=== PATIENT | female | born 1965 | race Caucasian/White ===

== ENCOUNTER 2018-08-27 13:35 | Emergency (ER) | payer SELFPAY ==
[2018-08-27] MEDS ORDERED: Penicillin V Potassium 500 MG Tab PO ONE (14:13)
--- NOTE | 2018-08-27 14:20 | EDM.PDOC ---
ED HPI GENERAL MEDICAL PROBLEM - General Chief Complaint: General Stated Complaint: TOOTH ACHE Time Seen by Provider: 08/27/18 13:46 Source of Information: Reports: Patient, RN Notes Reviewed History Limitations: Reports: No Limitations - History of Present Illness INITIAL COMMENTS - FREE TEXT/NARRATIVE: The patient states that she developed left lower dental pain about one week ago , after, she believes, she fractured tooth. No recent fever. No recent oral drainage. She states that it feels like her tooth is swollen. She has not made an appointment to see a dentist. The patient does not have a PCP. Tooth/Teeth Pain Score (Numeric/FACES): 8 - Related Data Allergies Allergy/AdvReac Type Severity Reaction Status Date / Time No Known Allergies Allergy Verified 08/27/18 13:40 Home Meds: Home Meds Naproxen 500 mg PO Q12H PRN #20 tablet 08/27/18 [Rx] Penicillin V Potassium 500 mg PO Q6HR #40 tab 08/27/18 [Rx] Past Medical History Cardiovascular History: Reports: CAD, [place] (2008) Musculoskeletal History: Reports: Fracture (right foot) Endocrine/Metabolic History: Reports: Obesity/BMI 30+ - Infectious Disease History Infectious Disease History: Reports: Hepatitis C - Past Surgical History Cardiovascular Surgical History: Reports: Other (See Below) (Coronary angiogram 2008. No stents placed.) Female Surgical History: Reports: Tubal Ligation Musculoskeletal Surgical History: Reports: Other (See Below) (Left leg debridement) Social & Family History - Tobacco Use Smoking Status *Q: Current Every Day Smoker Years of Tobacco use: 43 Packs/Tins Daily: 0.5 Packs/Tins Daily Comment: Down from 3 ppd - Caffeine Use Caffeine Use: Reports: Coffee - Alcohol Use Alcohol Use History: No - Recreational Drug Use Recreational Drug Use: Yes Drug Use in Last 12 Months: No Recreational Drug Type: Reports: Cocaine (last snorted 2011), Marijuana/Hashish (last smoked "years ago") - Living Situation & Occupation Living situation: Reports: , Alone 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 ED EXAM, GENERAL - Physical Exam Exam: See Below Exam Limited By: No Limitations General Appearance: Alert, WD/WN, No Apparent Distress Eye Exam: Bilateral Eye: EOMI, Normal Inspection Ears: Normal External Exam, Normal Canal, Hearing Grossly Normal, Normal TMs Nose: Normal Inspection, Normal Mucosa, No Blood Throat/Mouth: Normal Inspection, Normal Lips, Normal Gums, Normal Oropharynx, Normal Voice, No Airway Compromise, Other (Teeth #1 through 16 absent. Teeth # 17 through 19 absent. Tooth #20 (the tooth of concern) with advanced decay. Tooth #21 with significant caries. Tooth #22 okay. Teeth #23 through 26 absent. Teeth #27, 28 okay. Teeth #29 through 32 absent.) Head: Atraumatic, Normocephalic Neck: Normal Inspection, Supple, Non-Tender, Full Range of Motion. No: Lymphadenopathy (L), Lymphadenopathy (R) Course - Vital Signs Last Recorded V/S: Last Vital Signs Temp 36.0 C 08/27/18 13:40 Pulse 82 08/27/18 13:40 Resp BP 133/85 08/27/18 13:40 Pulse Ox 96 08/27/18 13:40 - Orders/Labs/Meds Orders: Active Orders 24 hr Category Date Time Status Penicillin V Potassium [Veetids] Med 08/27/18 14:13 Once 500 mg PO ONETIME ONE - Re-Assessments/Exams Free Text/Narrative Re-Assessment/Exam: 08/27/18 14:14 The patient appears to have advanced decay of tooth #20, along with some decay of tooth #21. I don't see an obvious infection, but I believe that a prescription for penicillin would be prudent. I will also prescribe naproxen, however, because the patient took 800 mg of ibuprofen just 2 hours ago, it is too early to give her a dose of naproxen here. The patient requested a note to be off work for 2 days. While I don't doubt that her tooth is painful, the degree of decay that I see took quite a while to develop, and I don't see that it constitutes a genuine emergency. I will write the patient a note to be off work today, but I believe it would be appropriate for her to return to work tomorrow. The patient will be given a list of local dentists. Departure - Departure Time of Disposition: 14:16 Disposition: Home, Self-Care 01 Condition: Good Clinical Impression: Dental decay - Discharge Information *PRESCRIPTION DRUG MONITORING PROGRAM REVIEWED*: Not Applicable *COPY OF PRESCRIPTION DRUG MONITORING REPORT IN PATIENT ALVAREZ: Not Applicable Referrals: PCP,None [Primary Care Provider] - Additional Instructions: You were seen in the emergency room for lower left dental pain. On examination, you appear to have significant decay of teeth #20 and 21. No obvious infection was found, but you have been started on the antibiotic penicillin. Prescriptions for penicillin and the pain reliever naproxen have been sent to the [facility], located just south and across the [address] from [facility]. Take one tablet of penicillin every 6 hours, as prescribed. Finish the entire prescription unless told otherwise by a dentist. Take one tablet of naproxen every 12 hours, with food, as prescribed. If you take naproxen, do not also take an [id number] NSAID, such as ibuprofen ( Motrin, Advil), or Naprosyn (Aleve). A list of local dentists has been provided to you. We strongly recommend that you follow-up with a dentist at the next available appointment. If any other problems, please do not hesitate to return to the ER. - My Orders Last 24 Hours: My Active Orders 08/27/18 14:13 Penicillin V Potassium [Veetids] 500 mg PO ONETIME ONE - Assessment/Plan Last 24 Hours: My Active Orders 08/27/18 14:13 Penicillin V Potassium [Veetids] 500 mg PO ONETIME ONE
== END 2018-08-27 14:50 | disposition home or self-care (01) ==
LOC: JD.ED 13:35
DX: K02.9 Dental caries, unspecified (principal); F17.210 Nicotine dependence, cigarettes, uncomplicated
CPT/HCPCS: 99282; A9270; 99283

== ENCOUNTER 2019-05-22 14:05 | Emergency (ER) | payer SELFPAY ==
--- NOTE | 2019-05-22 15:09 | EDM.PDOC ---
<Greta Araujo - Last Filed: 05/22/19 16:15> ED HPI GENERAL MEDICAL PROBLEM - General Chief Complaint: Chest Pain Stated Complaint: LEFT SIDE RIB PAIN Time Seen by Provider: 05/22/19 14:17 Source of Information: Reports: Patient History Limitations: Reports: No Limitations - History of Present Illness INITIAL COMMENTS - FREE TEXT/NARRATIVE: Pt is a 54 year old female who present with left thoracic pain since 05/19/19. Pt states that she was pulling on a wrench and it gave way causing her to fall and hit or left chest on the fender of the truck. Pain is worse with deep breathing, movement and left side lying. She has been having difficulty sleeping due to the pain as she tends to turn onto her left side. She has tried tylenol and ibuprofen without relief. Denies any shortness breath. 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 Left Middle Mid-Anterior Chest Pain Score (Numeric/FACES): 3 - Related Data Allergies Allergy/AdvReac Type Severity Reaction Status Date / Time No Known Allergies Allergy Verified 08/27/18 13:40 Home Meds: Home Meds Acetaminophen/HYDROcodone [[place] 325-5 MG] 1 tab PO Q6H PRN #14 tablet 05/22/19 [Rx] Past Medical History Cardiovascular History: Reports: CAD, [place] Musculoskeletal History: Reports: Fracture Other Musculoskeletal History: wrist Endocrine/Metabolic History: Reports: Obesity/BMI 30+ - Infectious Disease History Infectious Disease History: Reports: Hepatitis C - Past Surgical History HEENT Surgical History: Reports: Other (See Below) Cardiovascular Surgical History: Reports: Other (See Below) Female Surgical History: Reports: Tubal Ligation Social & Family History - Tobacco Use Smoking Status *Q: Current Every Day Smoker Years of Tobacco use: 40 Packs/Tins Daily: 0.5 - Caffeine Use Caffeine Use: Reports: None - Recreational Drug Use Recreational Drug Use: No - Living Situation & Occupation Living situation: Reports: , Alone 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 Denies: Shortness of Breath, Cough Cardiovascular: Reports: No Symptoms Endocrine: Reports: No Symptoms GI/Abdominal: Reports: No Symptoms : Reports: No Symptoms Musculoskeletal: Reports: Other (left sided chest wall pain worse with deep breathing and movement) Skin: Reports: No Symptoms Neurological: Reports: No Symptoms Psychiatric: Reports: No Symptoms Hematologic/Lymphatic: Reports: No Symptoms Immunologic: Reports: No Symptoms ED EXAM, GENERAL - Physical Exam Exam: See Below Exam Limited By: No Limitations General Appearance: Alert, WD/WN, No Apparent Distress Head: Atraumatic, Normocephalic Respiratory/Chest: No Respiratory Distress, Lungs Clear, Normal Breath Sounds, Other (tenderness and slight eccymosis to left chest over ribs 4-6.) Cardiovascular: Normal Peripheral Pulses, Regular Rate, Rhythm, No Edema Neurological: Alert, Oriented, Normal Cognition Psychiatric: Normal Affect, Normal Mood Course - Vital Signs Last Recorded V/S: Last Vital Signs Temp 97.5 F 05/22/19 14:30 Pulse 84 05/22/19 14:30 Resp 16 05/22/19 14:30 BP 109/87 05/22/19 14:30 Pulse Ox 97 05/22/19 14:30 - Re-Assessments/Exams Free Text/Narrative Re-Assessment/Exam: 05/22/19 16:08 xray reveals no obvious rib fractures. Will discharge pt home with orders to alternate APAP and ibuprofen for pain and a few [place] to help with sleeping at night. Departure - Departure Disposition: Home, Self-Care 01 Clinical Impression: Fall, Chest wall contusion - Discharge Information Prescriptions: Acetaminophen/HYDROcodone [[place] 325-5 MG] 1 tab PO Q6H PRN #14 tablet PRN Reason: Pain Instructions: Pulmonary Contusion, [id number] Referrals: PCP,None [Primary Care Provider] - Forms: ED Department Discharge Additional Instructions: You can alternate Tylenol and ibuprofen during the day as needed for discomfort. You can take hydrocodone instead of the Tylenol at bedtime or when not working. Prescription has been sent electronic to [facility]. Do not take Tylenol and hydrocodone at the same time. alternate ice and heat as needed. You can wrap your chest with an Gordon wrap when working to try get some further relief. Follow-up clinic if not much better within 1-2 weeks as expected. Return to ED as needed if symptoms worsening in any way. <Warren Swanson - Last Filed: 05/23/19 07:29> Course - Re-Assessments/Exams Free Text/Narrative Re-Assessment/Exam: 05/23/19 07:27 Initial hx and exam was done by HORTENSIA Hollins. I have also examined and interviewed patient. I agree with her hx and exam as documented. Departure - Departure Time of Disposition: 15:45 Condition: Fair
--- NOTE | 2019-05-22 16:14 | CR ---
Chest and left ribs: Frontal view of the chest was obtained as well as 2 views of the left ribs. Comparison: No previous chest exam. Heart size is normal. Tortuous thoracic aorta is seen. Lungs are clear with no acute parenchymal change. No discrete rib fracture or other rib abnormality is appreciated. Scoliosis is present within the spine. Impression: 1. Scoliosis. 2. Nothing acute is appreciated. 3. No definite left-sided rib abnormality is seen. Nondisplaced fracture could be missed. Diagnostic code #2
== END 2019-05-22 16:15 | disposition home or self-care (01) ==
LOC: JD.ED 14:05
DX: S20.212A Contusion of left front wall of thorax, initial encounter (principal); I25.10 Atherosclerotic heart disease of native coronary artery without angina pectoris; I25.2 Old myocardial infarction; F17.210 Nicotine dependence, cigarettes, uncomplicated; E66.9 Obesity, unspecified; Z68.32 Body mass index [BMI] 32.0-32.9, adult; W01.198A Fall on same level from slipping, tripping and stumbling with subsequent striking against other object, initial encounter; Y93.89 Activity, other specified
CPT/HCPCS: 71101-26-LT; 71101-LT; 99283; 99284-25

== ENCOUNTER 2019-07-21 19:41 | Emergency (ER) | payer OTHER ==
--- NOTE | 2019-07-21 19:59 | EDM.PDOC ---
ED HPI GENERAL MEDICAL PROBLEM - General Chief Complaint: Abdominal Pain Stated Complaint: abdominal pain Time Seen by Provider: 07/21/19 19:59 - History of Present Illness INITIAL COMMENTS - FREE TEXT/NARRATIVE: 54-year-old female presents the emergency room with abdominal pain. This pain started this morning seems to be worsening with eating pain seems to be in the midepigastric and right upper quadrant area. The patient gets pain with this she does not have associated vomiting she is been a little nauseated. No change in bowel habits. She has not had any fevers or chills. The only abdominal surgery the patient has had a tubal ligation. Epigastric Pain Score (Numeric/FACES): 5 - Related Data Allergies Allergy/AdvReac Type Severity Reaction Status Date / Time No Known Allergies Allergy Verified 07/21/19 19:49 Home Meds: Home Meds Pantoprazole Sodium [Protonix] 40 mg PO ASDIRECTED #30 tablet. 07/21/19 [Rx] Sucralfate [Carafate] 1 gm PO ASDIRECTED #24 tablet 07/21/19 [Rx] Past Medical History Cardiovascular History: Reports: CAD, [place] Gastrointestinal History: Reports: Fatty Liver, Other (See Below) Other Gastrointestinal History: hepatitis C Genitourinary History: Reports: Other (See Below) Other Genitourinary History: herpes Musculoskeletal History: Reports: Fracture Other Musculoskeletal History: wrist Endocrine/Metabolic History: Reports: Obesity/BMI 30+ - Infectious Disease History Infectious Disease History: Reports: Hepatitis C - Past Surgical History HEENT Surgical History: Reports: Other (See Below) Cardiovascular Surgical History: Reports: Other (See Below) Female Surgical History: Reports: Tubal Ligation Social & Family History - Tobacco Use Smoking Status *Q: Current Every Day Smoker Years of Tobacco use: 45 Packs/Tins Daily: 0.5 - Caffeine Use Caffeine Use: Reports: None - Recreational Drug Use Recreational Drug Use: Yes Drug Use in Last 12 Months: No - Living Situation & Occupation Living situation: Reports: , Alone 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 Denies: Constipation, Diarrhea , Nausea, Vomiting Musculoskeletal: Reports: No Symptoms, Muscle Pain Neurological: Reports: No Symptoms ED EXAM, GI/ABD - Physical Exam Exam: See Below General Appearance: Alert, No Apparent Distress Head: Atraumatic, Normocephalic Neck: Normal Inspection, Supple, Non-Tender, Full Range of Motion Respiratory/Chest: No Respiratory Distress, Lungs Clear, Normal Breath Sounds Cardiovascular: Regular Rate, Rhythm, No Edema, No Murmur GI/Abdominal Exam: Normal Bowel Sounds, Soft, Other (Capital tenderness in the epigastric area and to a lesser degree right upper quadrant. She also has some nonspecific left upper quadrant discomfort. She has no rigidity rebound or guarding noted no other palpable tenderness noted.) Back Exam: Normal Inspection. No: CVA Tenderness (L), CVA Tenderness (R) Extremities: Normal Inspection Course - Vital Signs Last Recorded V/S: Last Vital Signs Temp 36.1 C 07/21/19 19:47 Pulse 82 07/21/19 19:47 Resp 18 07/21/19 19:47 BP 138/94 H 07/21/19 19:47 Pulse Ox 97 07/21/19 19:47 - Orders/Labs/Meds Orders: Active Orders 24 hr Category Date Time Status Pantoprazole [ProTONIX] Med 07/22/19 21:33 Once 40 mg PO ONETIME ONE Medication Orders Pantoprazole Sodium (Protonix) 40 mg PO ONETIME ONE Stop: 07/22/19 21:34 Labs: Laboratory Tests 07/21/19 07/21/19 Range/Units 20:25 20:25 WBC 7.57 (3.98-10.04) K/mm3 RBC 4.14 (3.98-5.22) M/mm3 Hgb 13.3 (11.2-15.7) gm/dl Hct 38.8 (34.1-44.9) % MCV 93.7 (79.4-94.8) fl MCH 32.1 (25.6-32.2) pg MCHC 34.3 (32.2-35.5) g/dl RDW Std Deviation 41.0 (36.4-46.3) fL Plt Count 220 (182-369) K/mm3 MPV 8.7 L (9.4-12.3) fl Neutrophils % (Manual) 50 (40-60) % Band Neutrophils % 0 (0-10) % Lymphocytes % (Manual) 41 H (20-40) % Atypical Lymphs % 0 % Monocytes % (Manual) 6 (2-10) % Eosinophils % (Manual) 3 (0.7-5.8) % Basophils % (Manual) 0 L (0.1-1.2) Platelet Estimate Adequate RBC Morph Comment Normal Sodium 139 (136-145) mEq/L Potassium 3.7 (3.5-5.1) mEq/L Chloride 104 (98-107) mEq/L Carbon Dioxide 27 (21-32) mEq/L Anion Gap 11.7 (5-15) BUN 18 (7-18) mg/dL Creatinine 0.5 L (0.55-1.02) mg/dL Est Cr Clr Drug Dosing 107.64 mL/min Estimated GFR (MDRD) > 60 (>60) mL/min BUN/Creatinine Ratio 36.0 H (14-18) Glucose 87 (74-106) mg/dL Calcium 8.6 (8.5-10.1) mg/dL Total Bilirubin 0.2 (0.2-1.0) mg/dL Direct Bilirubin 0.10 (0.0-0.2) mg/dl AST 22 (15-37) U/L ALT 40 (14-59) U/L Alkaline Phosphatase 49 (46-116) U/L Total Protein 6.9 (6.4-8.2) g/dl Albumin 3.6 (3.4-5.0) g/dl Globulin 3.3 gm/dL Albumin/Globulin Ratio 1.1 (1-2) Lipase 133 (73-393) U/L Meds: Medications Generic Name Dose Route Start Last Admin Trade Name Freq PRN Reason Stop Dose Admin Pantoprazole Sodium 40 mg 07/22/19 21:33 Protonix PO 07/22/19 21:34 ONETIME ONE Discontinued Medications Generic Name Dose Route Start Last Admin Trade Name Freq PRN Reason Stop Dose Admin Al Hydroxide/Mg Hydroxide 30 0 ml 07/21/19 20:05 07/21/19 20:19 ml/ Lidocaine HCl 15 ml PO 07/21/19 20:06 45 ml ONETIME ONE Administration Sucralfate 1 gm 07/21/19 21:33 Carafate PO 07/21/19 21:34 ONETIME ONE - Re-Assessments/Exams Free Text/Narrative Re-Assessment/Exam: 07/21/19 21:29 Patient had some improvement with a GI cocktail but not complete patient was pretty insistent on going home at this time we will start her on Carafate and Protonix have her follow-up in the clinic obtain a gallbladder ultrasound at that time if indicated Departure - Departure Time of Disposition: 21:30 Disposition: Home, Self-Care 01 Clinical Impression: Upper abdominal pain - Discharge Information Prescriptions: Pantoprazole Sodium [Protonix] 40 mg PO ASDIRECTED #30 tablet. Sucralfate [Carafate] 1 gm PO ASDIRECTED #24 tablet Referrals: PCP,None [Primary Care Provider] - Forms: ED Department Discharge Additional Instructions: Return to the emergency room with any questions problems or worsening symptoms. Take the medications as directed. Follow-up in the hospital clinic early next week for recheck pursue gallbladder ultrasound at that time if indicated. The phone number to the clinic is [phone] Sepsis Event Note - Evaluation Sepsis Screening Result: No Definite Risk - Focused Exam Vital Signs: Vital Signs Temp Pulse Resp BP Pulse Ox 07/21/19 19:47 36.1 C 82 18 138/94 H 97 Date Exam was Performed: 07/21/19 Time Exam was Performed: 21:35 - My Orders Last 24 Hours: My Active Orders 07/22/19 21:33 Pantoprazole [ProTONIX] 40 mg PO ONETIME ONE - Assessment/Plan Last 24 Hours: My Active Orders 07/22/19 21:33 Pantoprazole [ProTONIX] 40 mg PO ONETIME ONE
[2019-07-21] MEDS ORDERED: Alum Hydrox/Mag Hydrox/Simeth 30 ML, Lidocaine 2% 15 ML PO ONE ×2 (20:05)
[2019-07-21] MEDS ORDERED: Sucralfate Suspension 1 GM/10 ML Cup PO ONE (21:33)
[2019-07-21] MEDS ORDERED: Pantoprazole 40 MG Tab.CR PO ONE (21:43)
[2019-07-22] MEDS ORDERED: Pantoprazole 40 MG Tab.CR PO ONE (21:33)
== END 2019-07-21 21:51 | disposition home or self-care (01) ==
LOC: JD.ED 19:41
DX: R10.13 Epigastric pain (principal); F17.210 Nicotine dependence, cigarettes, uncomplicated; Z98.51 Tubal ligation status
CPT/HCPCS: 36415; 80053; 82248; 83690; 85007; 85027; 99284; A9270; 99283

== ENCOUNTER 2019-08-23 10:19 | Day surgery (SDC) | payer OTHER, SELFPAY ==
[~2019-08-23 10:19] MED LIST: Lactated Ringers 1,000 ML IV SCH; Lidocaine 1%/Sod Bicarbonate in NS 8.4% 1 ML Syringe IDERM PRN; Sodium Chloride 0.9% 10 ML Syringe FLUSH PRN
--- NOTE | 2019-08-23 10:44 | PCM.PREANE ---
Preanesthetic Assessment - Anesthesia/Transfusion/Family Hx Anesthesia History: Prior Anesthesia Without Reaction - Review of Systems General: No Symptoms Pulmonary: No Symptoms Cardiovascular: No Symptoms Gastrointestinal: No Symptoms Neurological: No Symptoms Other: Reports: None - Physical Assessment NPO Status Date: 08/22/19 NPO Status Time: 21:00 ASA Class: 3 Mental Status: Alert & Oriented x3 Airway Class: Mallampati = 1 Dentition: Reports: Edentulous (4 lower premolars left severely decayed) Thyro-Mental Finger Breadths: 3 Mouth Opening Finger Breadths: 3 ROM/Head Extension: Full Lungs: Clear to Auscultation Cardiovascular: Regular Rate, Regular Rhythm - Imaging/EKG Impressions: EKG and stress test reviewed, copies on the chart. EF=55 to 60% - Allergies Allergies/Adverse Reactions: Allergies Allergy/AdvReac Type Severity Reaction Status Date / Time No Known Allergies Allergy Verified 08/22/19 12:33 - Acknowledgements Anesthesia Type Planned: General Anesthesia Pt an Appropriate Candidate for the Planned Anesthesia: Yes Alternatives and Risks of Anesthesia Discussed w Pt/Guardian: Yes Pt/Guardian Understands and Agrees with Anesthesia Plan: Yes PreAnesthesia Questionnaire Cardiovascular History: Reports: CAD, [place] Gastrointestinal History: Reports: Fatty Liver, Hepatitis, Other (See Below) Other Gastrointestinal History: hepatitis C Genitourinary History: Reports: Other (See Below) Other Genitourinary History: herpes, cone biopsy 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 Musculoskeletal History: Reports: None, Fracture Other Musculoskeletal History: wrist Psychiatric History: Reports: Other (See Below) Other Psychiatric History: insomnia Endocrine/Metabolic History: Reports: Obesity/BMI 30+ Immunologic History: Reports: None Dermatologic History: Reports: Cellulitis Other Dermatologic History: 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 - Infectious Disease History Infectious Disease History: Reports: Hepatitis C - Past Surgical History Head Surgeries/Procedures: Reports: None HEENT Surgical History: Reports: Other (See Below) Cardiovascular Surgical History: Reports: Other (See Below) Respiratory Surgical History: Reports: None Female Surgical History: Reports: Tubal Ligation Male Surgical History: Reports: None Endocrine Surgical History: Reports: None Neurological Surgical History: Reports: None Musculoskeletal Surgical History: Reports: Other (See Below) Other Musculoskeletal Surgeries/Procedures:: vascularlitis left leg Dermatological Surgical History: Reports: Skin Biopsy, Skin Graft - SUBSTANCE USE Smoking Status *Q: Current Every Day Smoker Recreational Drug Use History: No - HOME MEDS Home Medications: Home Meds Aspirin 81 mg PO DAILY 08/22/19 [History] - CURRENT (IN HOUSE) MEDS Current Meds: Current Medications Lactated Ringer's (Ringers, Lactated) 1,000 mls @ 125 mls/hr IV ASDIRECTED ILENE Stop: 08/23/19 23:00 Lidocaine/Sodium Bicarbonate (Buffered Lidocaine 1% In Ns 8.4%) 0.25 ml IDERM ONETIME PRN PRN Reason: Prior to IV Start Stop: 08/23/19 18:00 Sodium Chloride (Saline Flush) 10 ml FLUSH ASDIRECTED PRN PRN Reason: Keep Vein Open Stop: 08/23/19 18:00
[2019-08-23] MEDS ORDERED: Rocuronium 50 MG/5 ML Vial ONE (11:41)
[2019-08-23] MEDS ORDERED: Midazolam 1 MG/ML 2 ML SDV ONE ×2 (11:42→12:04)
[2019-08-23] MEDS ORDERED: fentaNYL 250 MCG/5 ML SDV ONE (11:42)
[2019-08-23] MEDS ORDERED: Propofol 200 MG/20 ML SDV ONE (11:42)
[2019-08-23] MEDS ORDERED: Lidocaine 1% 6 ML ONE (11:45)
[2019-08-23] MEDS ORDERED: ceFAZolin 1 GM Vial ONE (11:53)
[2019-08-23] MEDS: Bupivacaine 0.5%/EPINEPHrine 1:200,000 50 ML MDV ONE ×2 (12:18→12:29)
[2019-08-23] MEDS ORDERED: HYDROmorphone 0.5 MG/0.5 ML Syringe ONE ×2 (12:23→12:32)
[2019-08-23] MEDS ORDERED: Lactated Ringers 1,000 ML ONE (12:31)
[2019-08-23] MEDS ORDERED: Neostigmine Methylsulfate 1 MG/ML 5 ML Syringe ONE (12:42)
[2019-08-23] MEDS ORDERED: HYDROmorphone 0.5 MG/0.5 ML Syringe IVPUSH PRN (12:47)
[2019-08-23] MEDS ORDERED: fentaNYL 100 MCG/2 ML SDV IVPUSH PRN (12:47)
[2019-08-23] MEDS ORDERED: Ondansetron 4 MG/2 ML SDV ONE (12:48)
--- NOTE | 2019-08-23 12:59 | PCM.PRNOTE ---
- Free Text/Narrative Note: Operative Report Operation: laparoscopic cholecystectomy Date: 08/23/2019 Attending Surgeon: Jeremías Garcia MD Assisting: SHERICE Hutchinson Indication for Surgery: symptomatic cholelithiasis Preoperative antibiotics: 2 g Ancef IV VTE prophylaxis: SCDs Estimated Blood Loss: 10 cc Findings: perihepatic adhesions and omental adhesions to gallbladder. Straightforward dissection. The cystic artery coursed directly adjacent to the cystic duct and both structures were clamped and cut together after otherwise obtaining a critical view of safety. Detailed Report: The patient underwent general endotracheal anesthesia after being placed supine on the operating table and initial timeout. The abdomen was prepped and draped in sterile fashion. A pre-incision timeout was performed confirming the patient s identity and the operation to be performed. A Veress needle was inserted into the abdominal cavity below the left costal margin along the mid-clavicular line. The abdomen was insufflated with CO2 to 15 mm Hg. Gas was aspirated above the umbilicus with a syringe in order to ensure safe placement of a 5 mm bladed laparoscopic port. The 5mm 30 degree laparoscope was then inserted and viscera inspected. The gallbladder showed evidence of mild chronic inflammation. Two additional 5 mm ports were placed along the right subcostal region under direct vision with the laparoscope, and a 12 mm port was placed at the subxiphoid region. The gallbladder was grasped at the fundus with a locking grasper and retracted anteriorly and superiorly, exposing the infundibulum. This was grasped with the surgeons left hand grasper and retracted laterally. Adhesions to the gallbladder were dissected with the laparoscopic monopolar hook. The hook electrode was used to open the overlying peritoneum, and this plane of dissection was developed along the edges of the gallbladder at its interface with the liver bed. A combination of hook electrode, blunt dissection with the suction defensive fire control systems operator and the [place] grasper were used to carefully expose and skeletonize the cystic duct and artery. A critical view of safety was obtained- the duct and artery were apposed and attempts at dissection between the two resulted in some hemorrhage. The structures were otherwise skeletonized and a 5 mm clip easily fit across both structures. Hemolock clips were then placed. The duct and artery were transected with laparoscopic scissors between the hemolock clips. The hook was then used to dissect the gallbladder free from its attachment to the liver. The specimen was then placed in an Endocatch bag and removed through the subxiphoid port. The liver bed was inspected and appeared hemostatic, some irrigation was used to clear a small hematoma. The larger subxiphoid port was closed at the level of the fascia with vicryl suture using the PMI laparoscopic suture passer. Pneumoperitoneum was then released. All skin incisions were then closed with placement of subcuticular vicryl suture and dressed with dermabond. A total of 20 cc 0.5% marcaine with epinephrine was used for local anesthesia at the incision sites. The patient tolerated the operation well, was extubated in the operating room and transferred to the PACU for routine post-anesthesia care. Jeremías Garcia MD General Surgery
--- NOTE | 2019-08-23 13:23 | PCM.POSTAN ---
POST ANESTHESIA ASSESSMENT - MENTAL STATUS Mental Status: Alert, Confused - VITAL SIGNS Vital Signs: Last Vital Signs Temp 98.5 F 08/23/19 13:02 Pulse 74 08/23/19 13:02 Resp 15 08/23/19 13:02 BP 154/101 H 08/23/19 13:02 Pulse Ox 96 08/23/19 13:02 - RESPIRATORY Respiratory Status: Respiratory Rate WNL, Airway Patent, O2 Saturation Stable, Supplemental Oxygen - CARDIOVASCULAR CV Status: Pulse Rate WNL, Elevated Blood Pressure - GASTROINTESTINAL GI Status: Nauseau (tolerable) - PAIN Pain Score: 7 (is being treated) - POST OP HYDRATION Hydration Status: Adequate & Stable
[2019-08-23] MEDS ORDERED: Ketorolac 30 MG/ML SDV IVPUSH SCH (13:30)
[2019-08-23] MEDS ORDERED: diphenhydrAMINE 50 MG/ML SDV IVPUSH PRN (13:35)
[2019-08-23] MEDS ORDERED: oxyCODONE 5 MG Tab PO PRN (14:22)
--- NOTE | 2019-08-23 14:31 | PCM48HPAN ---
Post Anesthesia Note - EVALUATION WITHIN 48HRS OF ANESTHETIC Vital Signs in Normal Range: Yes Patient Participated in Evaluation: Yes Respiratory Function Stable: Yes Airway Patent: Yes Cardiovascular Function Stable: Yes Hydration Status Stable: Yes Pain Control Satisfactory: Yes (treating) Nausea and Vomiting Control Satisfactory: Yes Mental Status Recovered: Yes Vital Signs: Last Vital Signs Temp 36.9 C 08/23/19 13:30 Pulse 76 08/23/19 13:30 Resp 16 08/23/19 13:30 BP 142/85 H 08/23/19 13:30 Pulse Ox 96 08/23/19 13:30 - COMMENTS/OBSERVATIONS Free Text/Narrative:: no anesthesia complications noted
== END 2019-08-23 16:40 | disposition home or self-care (01) ==
LOC: JD.SDS 10:19 → JD.MS 15:00 → JD.SDS 16:40
PROVIDERS: ATTEND Surgery
DX: K82.8 Other specified diseases of gallbladder (principal); I25.10 Atherosclerotic heart disease of native coronary artery without angina pectoris; I25.2 Old myocardial infarction; F17.200 Nicotine dependence, unspecified, uncomplicated; E66.9 Obesity, unspecified; Z68.33 Body mass index [BMI] 33.0-33.9, adult; Z79.82 Long term (current) use of aspirin; Z79.899 Other long term (current) drug therapy
CPT/HCPCS: 47562; A9270; J0690; J1170; J1885; J2001; J2250; J2405; J2704; J3010; J3490; J7120; 00790; J2710

== ENCOUNTER 2019-08-26 12:56 | Emergency (ER) | payer OTHER, SELFPAY ==
[2019-08-26] MEDS ORDERED: Ondansetron 4 MG Tab.DIS PO ONE (13:34)
--- NOTE | 2019-08-26 14:03 | EDM.PDOC ---
ED HPI GENERAL MEDICAL PROBLEM - General Chief Complaint: Abdominal Pain Stated Complaint: PAIN POST GALLBLADDER SURGERY Time Seen by Provider: 08/26/19 13:34 Source of Information: Reports: Patient, RN Notes Reviewed History Limitations: Reports: No Limitations - History of Present Illness INITIAL COMMENTS - FREE TEXT/NARRATIVE: Patient is a 54-year-old female who presents to the ED for the evaluation of ongoing pain status post gallbladder surgery. This was done laparoscopically, the patient does have 5 abdominal surgical wounds that appear to be well- healing. One is in the epigastric area, one is just superior to the bellybutton , and there were 2 on the right lateral abdomen. The 2 on the right lateral abdomen had to have some bruising present, the wound on the epigastrium, appears to be well-healing with no surrounding erythema or obvious infection. The wound above the bellybutton also appears to have no erythema or obvious infection. Patient states she is still having quite a bit of pain to the epigastric laceration. Patient states that the pain medication she was provided , she has run out of due to needing to take it more frequent than every 4 hours. She states she was having to take it about every 3 hours for pain relief. She states that she is trying to stretch it to every 4. She has been trying to use 800 mg ibuprofen as well for further pain management but states she does not get a lot of relief from this. Patient did call her surgeon and was told that if she is still having that much pain that she is to come to the ER for evaluation. Patient states that she did have one episode of nausea 1 day after the surgery, but has not had nausea since. She has been having bowel movements, and states that she is belching as well. She states she is eating and drinking okay. She has not had any fevers or chills, or any other sick- like symptoms. Upper Abdomen Pain Score (Numeric/FACES): 10 - Related Data Allergies Allergy/AdvReac Type Severity Reaction Status Date / Time No Known Allergies Allergy Verified 08/22/19 12:33 Home Meds: Home Meds Aspirin 81 mg PO DAILY 08/22/19 [History] oxyCODONE 5 mg PO Q4H #15 tab 08/23/19 [Rx] Acetaminophen/oxyCODONE [Percocet 325-5 MG] 1 each PO Q4H PRN #20 tab 08/26/19 [ Rx] Docusate Sodium [Colace] 100 mg PO DAILY 08/26/19 [History] Past Medical History Cardiovascular History: Reports: CAD, [place] Gastrointestinal History: Reports: Fatty Liver, Hepatitis, Other (See Below) Other Gastrointestinal History: hepatitis C Genitourinary History: Reports: Other (See Below) Other Genitourinary History: herpes, cone biopsy Musculoskeletal History: Reports: Fracture Other Musculoskeletal History: wrist Psychiatric History: Reports: Other (See Below) Other Psychiatric History: insomnia Endocrine/Metabolic History: Reports: Obesity/BMI 30+ Dermatologic History: Reports: Cellulitis Other Dermatologic History: 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 - Infectious Disease History Infectious Disease History: Reports: Hepatitis C - Past Surgical History HEENT Surgical History: Reports: Other (See Below) Cardiovascular Surgical History: Reports: Other (See Below) GI Surgical History: Reports: Appendectomy, Cholecystectomy Female Surgical History: Reports: Tubal Ligation Musculoskeletal Surgical History: Reports: Other (See Below) Other Musculoskeletal Surgeries/Procedures:: vasculitis left leg Dermatological Surgical History: Reports: Skin Biopsy, Skin Graft Social & Family History - Tobacco Use Smoking Status *Q: Current Every Day Smoker Years of Tobacco use: 40 Packs/Tins Daily: 0.5 - Caffeine Use Caffeine Use: Reports: Coffee, Soda - Recreational Drug Use Recreational Drug Use: No - Living Situation & Occupation Living situation: Reports: , Alone 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 Denies: Constipation, Diarrhea, Decreased Appetite, Nausea, Vomiting : Denies: Dysuria, Frequency, Urgency Musculoskeletal: Denies: Back Pain Skin: Reports: Other (See HPI) ED EXAM, GI/ABD - Physical Exam Exam: See Below Exam Limited By: No Limitations General Appearance: Alert, WD/WN, No Apparent Distress Eyes: Bilateral: Normal Appearance Respiratory/Chest: No Respiratory Distress, Lungs Clear, Normal Breath Sounds, No Accessory Muscle Use, Chest Non-Tender Cardiovascular: Normal Peripheral Pulses, Regular Rate, Rhythm, No Murmur GI/Abdominal Exam: Normal Bowel Sounds, Soft, No Distention, No Mass, Tender ( around epigastric incision and umbilical incision, no erythema noted, no obvious infection present. The incisions on lateral abdomen have surrounding ecchymosis, but no erythema or obvious signs of infection.) Neurological: Alert, Oriented, Normal Cognition, No Motor/Sensory Deficits Psychiatric: Normal Affect, Normal Mood Skin Exam: Warm, Dry, No Rash, Ecchymosis (Around the 2 lateral laparoscopic wounds), Wound/Incision (See abdomen assessment). No: Erythema, Increased Warmth Course - Vital Signs Last Recorded V/S: Last Vital Signs Temp 98.0 F 08/26/19 13:25 Pulse 71 08/26/19 13:25 Resp 20 08/26/19 13:25 BP 128/87 08/26/19 13:25 Pulse Ox 98 08/26/19 13:25 - Orders/Labs/Meds Meds: Medications Discontinued Medications Generic Name Dose Route Start Last Admin Trade Name Freq PRN Reason Stop Dose Admin Ondansetron HCl 4 mg 08/26/19 13:34 08/26/19 13:54 Zofran Odt PO 08/26/19 13:35 Not Given ONETIME ONE - Re-Assessments/Exams Free Text/Narrative Re-Assessment/Exam: 08/26/19 14:11 Patient presents to the ED for the evaluation of increased pain around her laparoscopic incision sites. Patient is still semi-tender to her epigastric incision and umbilical incision. There is no obvious signs of any sort of infection, erythema, or any other worrisome signs or symptoms. These do appear to be healing well. Patient has come because she is basically run out of her pain medications. I will provide her with a few more tablets and gave her the strict recommendation that she does need to follow-up with Dr. Garcia tomorrow , she states that she will do as such. Departure - Departure Time of Disposition: 13:57 Disposition: Home, Self-Care 01 Condition: Fair Clinical Impression: Abdominal pain Qualifiers: Abdominal location: right upper quadrant Qualified Code(s): R10.11 - Right upper quadrant pain - Discharge Information *PRESCRIPTION DRUG MONITORING PROGRAM REVIEWED*: Yes *COPY OF PRESCRIPTION DRUG MONITORING REPORT IN PATIENT ALVAREZ: No Prescriptions: Acetaminophen/oxyCODONE [Percocet 325-5 MG] 1 each PO Q4H PRN #20 tab PRN Reason: Pain Instructions: Managing Pain Without Opioids, Opioid Pain Medicine Information, [id number] Referrals: Jeremías Garcia MD [Primary Care Provider] - Forms: ED Department Discharge Additional Instructions: You were evaluated in the ER today regarding your abdominal pain around your incision sites. These were evaluated and they do not appear to have any sort of infection present at each site. It is very likely that you will have some pain around these areas for quite some time after your surgery. As this is only 3 days post her surgery. You were given a few more tablets of some pain medication for further pain relief however you will need to follow-up with the surgeon early Tuesday morning so that he may lay eyes on you and reevaluate you as well. You were given a prescription for a strong pain medication, oxycodone/ acetaminophen 5/325, please take 1 tab every 4-6 hours as needed for pain not relieved by Tylenol or ibuprofen alone. Please note this medication does contain Tylenol in it, so do not take more than 4000 mg in a 24-hour time span. These medications can be addictive, so please take as few as possible to achieve adequate pain control. These meds can also be quite constipating, recommend that you increase your oral fluid intake and take a stool softener like MiraLAX while taking these medications. Do not drive while taking this medication. Please return to the ER at any time however if your symptoms change or worsen. Sepsis Event Note - Evaluation Sepsis Screening Result: No Definite Risk - Focused Exam Vital Signs: Vital Signs Temp Pulse Resp BP Pulse Ox 08/26/19 13:25 98.0 F 71 20 128/87 98 Date Exam was Performed: 08/26/19 Time Exam was Performed: 14:04
== END 2019-08-26 14:15 | disposition home or self-care (01) ==
LOC: JD.ED 12:56
DX: R10.11 Right upper quadrant pain (principal); F17.210 Nicotine dependence, cigarettes, uncomplicated; Z79.82 Long term (current) use of aspirin; Z79.899 Other long term (current) drug therapy
CPT/HCPCS: 99283

== ENCOUNTER 2019-10-06 10:45 | Emergency (ER) | payer MEDICAID, OTHER, SELFPAY ==
--- NOTE | 2019-10-06 11:32 | EDM.PDOC ---
ED HPI GENERAL MEDICAL PROBLEM - General Chief Complaint: ENT Problem Stated Complaint: RUNNY NOSE AND SORE THROAT Time Seen by Provider: 10/06/19 11:06 Source of Information: Reports: Patient, RN Notes Reviewed History Limitations: Reports: No Limitations - History of Present Illness INITIAL COMMENTS - FREE TEXT/NARRATIVE: Patient is a 54-year-old female who presents to the ED for evaluation of a runny nose and sore throat. The patient notes that the symptoms started Tuesday. She noted the runny nose started first, that she developed a mild cough and a sore throat. She states that she has felt chilled at home but has not had an actual fever. She has not taken any medications for the symptoms. 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 The patient notes that her boss sent her here to be checked for COVID-19 today. Patient denies any travel outside the state or country, and states that she has not had exposure to anyone that has been known to be positive for coronavirus. Patient states that she has had exposure however to 2 persons with the flu, and states that she does get strep throat pretty often in the winter. She notes that her sore throat does feel like it does before she gets diagnosed with strep throat normally. - Related Data Allergies Allergy/AdvReac Type Severity Reaction Status Date / Time No Known Allergies Allergy Verified 10/06/19 11:03 Home Meds: Home Meds Omeprazole Magnesium [Prilosec Otc] 20 mg PO DAILY 10/06/19 [History] Past Medical History Cardiovascular History: Reports: CAD, [place] Gastrointestinal History: Reports: Fatty Liver, Hepatitis, Other (See Below) Other Gastrointestinal History: hepatitis C Genitourinary History: Reports: Other (See Below) Other Genitourinary History: herpes, cone biopsy Musculoskeletal History: Reports: Fracture Other Musculoskeletal History: wrist Psychiatric History: Reports: Other (See Below) Other Psychiatric History: insomnia Endocrine/Metabolic History: Reports: Obesity/BMI 30+ Dermatologic History: Reports: Cellulitis Other Dermatologic History: 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 - Infectious Disease History Infectious Disease History: Reports: Hepatitis C - Past Surgical History HEENT Surgical History: Reports: Other (See Below) Cardiovascular Surgical History: Reports: Other (See Below) GI Surgical History: Reports: Cholecystectomy (aug 2019) Female Surgical History: Reports: Tubal Ligation Musculoskeletal Surgical History: Reports: Other (See Below) Other Musculoskeletal Surgeries/Procedures:: vasculitis left leg Dermatological Surgical History: Reports: Skin Biopsy, Skin Graft Social & Family History - Family History Family Medical History: Noncontributory - Tobacco Use Smoking Status *Q: Current Every Day Smoker Years of Tobacco use: 43 Packs/Tins Daily: 0.5 - Caffeine Use Caffeine Use: Reports: Coffee, Soda, Tea - Recreational Drug Use Recreational Drug Use: Yes Drug Use in Last 12 Months: Yes Recreational Drug Type: Reports: Marijuana/Hashish Recreational Drug Use Frequency: Daily - Living Situation & Occupation Living situation: Reports: , Alone Occupation: Employed (Works at [employer] ED ROS ENT - Review of Systems Review Of Systems: See Below Constitutional: Reports: Chills. Denies: Fever HEENT: Reports: Rhinitis, Throat Pain Respiratory: Reports: Cough. Denies: Shortness of Breath Cardiovascular: Denies: Chest Pain GI/Abdominal: Denies: Abdominal Pain, Constipation, Diarrhea, Nausea, Vomiting Neurological: Denies: Headache ED EXAM, ENT - Physical Exam Exam: See Below Exam Limited By: No Limitations General Appearance: Alert, WD/WN, No Apparent Distress Eye Exam: Bilateral Eye: EOMI, Normal Inspection, PERRL Ears: Normal External Exam Nose: Normal Inspection Mouth/Throat: Normal Inspection, Normal Gums, Normal Lips, Normal Teeth, Pharyngeal Erythema (mild). No: Tonsillar Exudates, Tonsillar Swelling Head: Atraumatic, Normocephalic Neck: Normal Inspection Respiratory/Chest: No Respiratory Distress, Lungs Clear, Normal Breath Sounds, No Accessory Muscle Use, Chest Non-Tender Cardiovascular: Normal Peripheral Pulses, Regular Rate, Rhythm, No Murmur GI/Abdominal: Normal Bowel Sounds, Soft, Non-Tender, No Distention, No Mass Extremities: Normal Inspection, Normal Capillary Refill Neurological: Alert, Oriented, Normal Cognition, No Motor/Sensory Deficits Psychiatric: Normal Affect, Normal Mood Skin: Warm, Dry, Intact, Normal Color, No Rash Course - Vital Signs Last Recorded V/S: Last Vital Signs Temp 97.9 F 10/06/19 11:00 Pulse 84 10/06/19 11:00 Resp 15 10/06/19 11:00 BP 122/78 10/06/19 11:00 Pulse Ox 96 10/06/19 11:00 - Orders/Labs/Meds Orders: Active Orders 24 hr Category Date Time Status CULTURE STREP A CONFIRMATION [RM] Stat Lab 10/06/19 11:20 Results STREP SCRN A RAPID W CULT CONF [RM] Stat Lab 10/06/19 11:17 Ordered Isolation [COMM] Routine Oth 10/06/19 11:17 Ordered - Re-Assessments/Exams Free Text/Narrative Re-Assessment/Exam: 10/06/19 11:35 Patient presents to the ED for the evaluation of her cold-like symptoms. 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 10/06/19 12:12 All tests are negative at this time. Strep will be sent for culture for confirmation. Patient will be given a handout on COVID-19 testing. Departure - Departure Time of Disposition: 12:13 Disposition: Home, Self-Care 01 Condition: Fair Clinical Impression: Acute sore throat, Viral URI with cough - Discharge Information *PRESCRIPTION DRUG MONITORING PROGRAM REVIEWED*: No *COPY OF PRESCRIPTION DRUG MONITORING REPORT IN PATIENT ALVAREZ: No Instructions: Viral Respiratory Infection, [id number] Referrals: Shannon Gutierrez PA-C [Primary Care Provider] - Forms: ED Department Discharge, ED Return to Work/School Form Additional Instructions: You have been evaluated in the ED today for your cold like symptoms. You had an influenza screen, RSV screen, and strep screen done at today's visit. All of these were negative, however the strep screen will be sent for culture for confirmation as this is not a perfect test. You will be made notified in 24 to 48 hours if you should need antibiotics for a positive culture. Please increase your fluid intake. Get plenty of rest as well. You should feel better in a few days. As with any illness, please try to limit your exposure to others to help mitigate the spread of germs. Please also remember to wash your hands after you cough/sneeze. Please try to limit touching your face, and then touching other surfaces. Recommend that you take some [id number] nasal decongestants, cough/cold remedies to combat this. You may take 500mg Tylenol (acetaminophen) or 600mg Advil/Motrin (ibuprofen) every 6 hours as needed for further pain/fever relief. Do not exceed 4000 mg Tylenol or 3200 mg ibuprofen in a 24-hour time span.. If you have high blood pressure, medications like Coricidin would be adequate to use. Regarding testing for COVID-19: testing supplies are very limited, and the tests must be rationed in a way that only the patients that are HIGHLY suspected to have the virus are the ones being tested at this time. You have been given a handout from the [place] Dept. of Health regarding this. We ask that you self-quarantine for at least 7 days from the beginning of symptoms. You have been given a work note to reflect this. Please return to the ED if your symptoms change or worsen. Sepsis Event Note - Evaluation Sepsis Screening Result: No Definite Risk - Focused Exam Vital Signs: Vital Signs Temp Pulse Resp BP Pulse Ox 10/06/19 11:00 97.9 F 84 15 122/78 96 Date Exam was Performed: 10/06/19 Time Exam was Performed: 12:12 - My Orders Last 24 Hours: My Active Orders 10/06/19 11:17 STREP SCRN A RAPID W CULT CONF [RM] Stat Isolation [COMM] Routine 10/06/19 11:20 CULTURE STREP A CONFIRMATION [RM] Stat - Assessment/Plan Last 24 Hours: My Active Orders 10/06/19 11:17 STREP SCRN A RAPID W CULT CONF [RM] Stat Isolation [COMM] Routine 10/06/19 11:20 CULTURE STREP A CONFIRMATION [RM] Stat
== END 2019-10-06 12:26 | disposition home or self-care (01) ==
LOC: JD.ED 10:45
DX: J06.9 Acute upper respiratory infection, unspecified (principal); J02.9 Acute pharyngitis, unspecified
CPT/HCPCS: 87081; 87430; 87804; 87807; 99282; 99283

== ENCOUNTER 2019-10-23 13:20 | Emergency (ER) | payer OTHER, SELFPAY ==
--- NOTE | 2019-10-23 14:21 | CR ---
Sacrum and coccyx: 3 views of the sacrum and coccyx were obtained. Mild spondylolisthesis at L5-S1 is seen compatible with degenerative apophyseal change. No fracture or other bony abnormality is appreciated. Impression: 1. Degenerative change as noted above. 2. Nothing acute is identified on 3 view sacrum and coccyx study. Diagnostic code #2 This report was dictated in MDT
--- NOTE | 2019-10-23 14:21 | CR ---
Lumbar spine: AP, lateral and coned-down lateral views centered to the lumbosacral junction were obtained. Comparison: Prior lateral reconstructed images from CT abdomen and pelvis exam of 07/24/19. Findings: Disc space narrowing noted at L1 to. Mild posterior disc space narrowing at L2-3 through L5-S1. Scattered anterior endplate osteophytes are noted with mild scoliosis. Pedicles are intact. Visualized transverse and spinous processes are intact. Minimal spondylolisthesis at L5-S1 due to degenerative apophyseal change. No acute fracture is seen. Impression: 1. Degenerative change and mild scoliosis. 2. Nothing acute is definitely appreciated on 3 view lumbar spine study. Diagnostic code #2 This report was dictated in MDT
--- NOTE | 2019-10-23 14:21 | CR ---
Sacroiliac joints: AP and oblique views of the sacroiliac joints were obtained. Comparison: No previous sacroiliac joint exam. Joint spaces within both sacroiliac joints appear within normal limits. No discrete fracture or other bony abnormality is appreciated. Impression: 1. No abnormality is appreciated on bilateral sacroiliac joint exam. Diagnostic code #1 This report was dictated in MDT
--- NOTE | 2019-10-23 14:51 | EDM.PDOC ---
ED HPI GENERAL MEDICAL PROBLEM - General Chief Complaint: Back Pain or Injury Stated Complaint: BUTTOCK AND LEG PAIN Time Seen by Provider: 10/23/19 13:38 Source of Information: Reports: Patient History Limitations: Reports: No Limitations - History of Present Illness INITIAL COMMENTS - FREE TEXT/NARRATIVE: Patient is a 54-year-old female who presents with complaints of pain to her right buttocks and down her right leg. Patient states that on Tuesday she slipped and fell down some stairs. She reached up with her right arm to catch herself on the railing she ended up landing on her bottom with her right leg tucked under her. She has been experiencing pain in the middle of the right buttocks that radiates down her leg. She denies any bowel or bladder dysfunction. States that she has had a fracture of her sacrum in the past but that this does not feel similar to that. Right Leg Pain Score (Numeric/FACES): 8 Lower Back Pain Score (Numeric/FACES): 6 - Related Data Allergies Allergy/AdvReac Type Severity Reaction Status Date / Time No Known Allergies Allergy Verified 10/23/19 13:37 Home Meds: Home Meds Cyclobenzaprine [Flexeril] 10 mg PO TID PRN #10 tab 10/23/19 [Rx] Naproxen [Naprosyn] 500 mg PO Q12HR 5 Days #10 tab 10/23/19 [Rx] Sucralfate [Carafate] 1 gm PO DAILY PRN 10/23/19 [History] Past Medical History Cardiovascular History: Reports: CAD, [place] Respiratory History: Reports: None Gastrointestinal History: Reports: Fatty Liver, Hepatitis Other Gastrointestinal History: hepatitis C Genitourinary History: Reports: Other (See Below) Other Genitourinary History: herpes, cone biopsy 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 Musculoskeletal History: Reports: Fracture Other Musculoskeletal History: wrist Neurological History: Reports: None Psychiatric History: Reports: Other (See Below) Other Psychiatric History: insomnia Endocrine/Metabolic History: Reports: Obesity/BMI 30+ Hematologic History: Reports: None Immunologic History: Reports: None Oncologic (Cancer) History: Reports: None Dermatologic History: Reports: Cellulitis Other Dermatologic History: 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 - Infectious Disease History Infectious Disease History: Reports: Hepatitis C - Past Surgical History Head Surgeries/Procedures: Reports: None Cardiovascular Surgical History: Reports: Percutaneous Transluminal Angioplasty Respiratory Surgical History: Reports: None GI Surgical History: Reports: Cholecystectomy Female Surgical History: Reports: Tubal Ligation Neurological Surgical History: Reports: None Musculoskeletal Surgical History: Reports: Other (See Below) Other Musculoskeletal Surgeries/Procedures:: vasculitis left leg Dermatological Surgical History: Reports: Skin Biopsy, Skin Graft Social & Family History - Family History Family Medical History: Noncontributory - Tobacco Use Smoking Status *Q: Current Every Day Smoker Years of Tobacco use: 34 Packs/Tins Daily: 0.5 - Caffeine Use Caffeine Use: Reports: Coffee, Soda - Recreational Drug Use Recreational Drug Use: Yes Drug Use in Last 12 Months: Yes Recreational Drug Type: Reports: Marijuana/Hashish Recreational Drug Use Frequency: Socially - Living Situation & Occupation Living situation: Reports: , Alone Occupation: Employed (Works at [employer]) ED ROS GENERAL - Review of Systems Review Of Systems: Comprehensive ROS is negative, except as noted in HPI. ED EXAM,LOWER BACK PAIN/INJURY - Physical Exam Exam: See Below Exam Limited By: No Limitations General Appearance: Alert, WD/WN, No Apparent Distress Respiratory/Chest: No Respiratory Distress, Lungs Clear, Normal Breath Sounds, No Accessory Muscle Use, Chest Non-Tender Cardiovascular: Normal Peripheral Pulses, Regular Rate, Rhythm, No Edema, No Gallop, No JVD, No Murmur, No Rub Back Exam: Normal Inspection, Paraspinal Tenderness (Right low back. Distinct tenderness directly over the right SI joint. No obvious bruising or swelling.) Neurological: Alert, Normal Mood/Affect, Normal Dorsiflexion, CN II-XII Intact, Normal Plantar Flexion, Normal Gait, Normal Reflexes, No Motor/Sensory Deficits , Oriented x 3 Psychiatric: Normal Affect, Normal Mood Skin Exam: Warm, Dry, Intact, Normal Color, No Rash Course - Vital Signs Last Recorded V/S: Last Vital Signs Temp 98.5 F 10/23/19 13:34 Pulse 105 H 10/23/19 13:34 Resp 16 10/23/19 13:34 BP 120/80 10/23/19 13:34 Pulse Ox 95 10/23/19 13:34 - Re-Assessments/Exams Free Text/Narrative Re-Assessment/Exam: 10/23/19 14:48 X-rays were negative for any acute fractures. We will discharge the patient home with Flexeril and Naprosyn. We will provide her a note off from work through Tuesday. Recommend that if she is still having significant pain by next week, she should follow-up in the clinic to discuss outpatient MRI. Discharge instructions as documented. Departure - Departure Time of Disposition: 14:48 Disposition: Home, Self-Care 01 Condition: Fair Clinical Impression: Lumbar pain with radiation down right leg - Discharge Information *PRESCRIPTION DRUG MONITORING PROGRAM REVIEWED*: No *COPY OF PRESCRIPTION DRUG MONITORING REPORT IN PATIENT ALVAREZ: No Prescriptions: Naproxen [Naprosyn] 500 mg PO Q12HR 5 Days #10 tab Cyclobenzaprine [Flexeril] 10 mg PO TID PRN #10 tab PRN Reason: Muscle Spasm Instructions: Acute Back Pain, Adult Referrals: Shannon Gutierrez PA-C [Primary Care Provider] - Forms: ED Department Discharge, ED Return to Work/School Form Additional Instructions: You were seen in the emergency department today for right-sided back pain rating down the right leg. X-rays were done and were negative for any acute fractures. As we discussed, it is likely a muscle strain that is causing your pain. You have been prescribed Flexeril and Naprosyn for the pain. Take these medications as prescribed. A note has been provided off from work through Tuesday. If the pain does not resolve by early next week, I would recommend that you follow-up with your primary care provider in the clinic to discuss the possibility of an outpatient MRI. Return to ER as needed. Sepsis Event Note - Evaluation Sepsis Screening Result: No Definite Risk - Focused Exam Vital Signs: Vital Signs Temp Pulse Resp BP Pulse Ox 10/23/19 13:34 98.5 F 105 H 16 120/80 95 Date Exam was Performed: 10/23/19 Time Exam was Performed: 15:06
== END 2019-10-23 15:05 | disposition home or self-care (01) ==
LOC: JD.ED 13:20
DX: M54.5 Low back pain (principal); I25.10 Atherosclerotic heart disease of native coronary artery without angina pectoris; I25.2 Old myocardial infarction; F17.210 Nicotine dependence, cigarettes, uncomplicated; E66.9 Obesity, unspecified; Z68.35 Body mass index [BMI] 35.0-35.9, adult
CPT/HCPCS: 72100; 72100-26; 72202; 72202-26; 72220; 72220-26; 99283; 99283-25

== ENCOUNTER 2019-12-28 12:07 | Emergency (ER) | payer MEDICAID ==
--- NOTE | 2019-12-28 12:49 | EDM.PDOC ---
ED HPI GENERAL MEDICAL PROBLEM - General Chief Complaint: General Stated Complaint: SORE THROAT,CHILLS,FEVER,BODY ACHES Time Seen by Provider: 12/28/19 12:48 - History of Present Illness INITIAL COMMENTS - FREE TEXT/NARRATIVE: 54-year-old female presents to the emergency room with sore throat. She also had chest pain yesterday. The patient has a history of 2 prior myocardial infarctions and she continues to smoke. The patient has a cough she describes as typical smoker's cough. But she is noticed that when she coughs it is more tender yesterday she did have an episode of chest discomfort in the left lower chest that was not associated with coughing. She thinks she has had a fever but nothing is been documented higher than 99.4. This morning she developed sore throat. She also complains of being achy all over. Throat Pain Score (Numeric/FACES): 8 - Related Data Allergies Allergy/AdvReac Type Severity Reaction Status Date / Time No Known Allergies Allergy Verified 12/28/19 12:38 Home Meds: Home Meds . 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 Musculoskeletal History: Reports: Fracture Other Musculoskeletal History: wrist Neurological History: Reports: None Psychiatric History: Reports: Anxiety, Other (See Below) Other Psychiatric History: insomnia Endocrine/Metabolic History: Reports: Obesity/BMI 30+ Hematologic History: Reports: None Immunologic History: Reports: None Oncologic (Cancer) History: Reports: None, Cervix Dermatologic History: Reports: Cellulitis Other Dermatologic History: cellulitis and vasculitis of left leg in 2015 with mulitple surgeries/debridements - Infectious Disease History Infectious Disease History: Reports: Hepatitis C - Past Surgical History Head Surgeries/Procedures: Reports: None Cardiovascular Surgical History: Reports: Percutaneous Transluminal Angioplasty Respiratory Surgical History: Reports: None GI Surgical History: Reports: Cholecystectomy Female Surgical History: Reports: Tubal Ligation Neurological Surgical History: Reports: None Musculoskeletal Surgical History: Reports: Other (See Below) Other Musculoskeletal Surgeries/Procedures:: vasculitis left leg Dermatological Surgical History: Reports: Skin Biopsy, Skin Graft Social & Family History - Family History Family Medical History: Noncontributory - Tobacco Use Smoking Status *Q: Current Every Day Smoker Years of Tobacco use: 40 Packs/Tins Daily: 0.5 - Caffeine Use Caffeine Use: Reports: Soda - Recreational Drug Use Recreational Drug Use: Yes Recreational Drug Type: Reports: Marijuana/Hashish Recreational Drug Use Frequency: Rarely - Living Situation & Occupation Living situation: Reports: , Alone Occupation: Employed (Works at [employer] ED ROS GENERAL - Review of Systems Review Of Systems: See Below Constitutional: Reports: Fever (Subjective) HEENT: Reports: No Symptoms Respiratory: Reports: Cough. Denies: Shortness of Breath, Wheezing, Sputum Cardiovascular: Reports: Chest Pain. Denies: Dyspnea on Exertion, Edema, Palpitations Endocrine: Reports: No Symptoms GI/Abdominal: Reports: No Symptoms : Reports: No Symptoms Musculoskeletal: Reports: No Symptoms Skin: Reports: No Symptoms Neurological: Reports: No Symptoms Psychiatric: Reports: No Symptoms Hematologic/Lymphatic: Reports: No Symptoms Immunologic: Reports: No Symptoms ED EXAM, GENERAL - Physical Exam Exam: See Below Exam Limited By: No Limitations General Appearance: Alert, No Apparent Distress Eye Exam: Bilateral Eye: Normal Inspection Ears: Normal External Exam, Normal Canal, Hearing Grossly Normal, Normal TMs Nose: Normal Inspection, Normal Mucosa, No Blood Throat/Mouth: Normal Inspection, Normal Lips, Normal Teeth, Normal Gums, Normal Oropharynx, Normal Voice, No Airway Compromise Head: Atraumatic, Normocephalic Neck: Normal Inspection, Supple, Non-Tender, Full Range of Motion. No: Lymphadenopathy (L), Lymphadenopathy (R) Respiratory/Chest: No Respiratory Distress, Lungs Clear, Normal Breath Sounds Cardiovascular: Regular Rate, Rhythm, No Edema, No Murmur GI/Abdominal: Normal Bowel Sounds, Soft, Non-Tender Back Exam: Normal Inspection. No: CVA Tenderness (L), CVA Tenderness (R) Neurological: Alert, Oriented, Normal Cognition Psychiatric: Normal Affect, Normal Mood Skin Exam: Warm, Dry, Intact Lymphatic: No Adenopathy EKG INTERPRETATION EKG Date: 12/28/19 [place]: Normal P-Wave: Present QRS: Normal ST-T: Normal QT: Normal Comparison: NA - No Prior EKG EKG Interpretation Comments: normal Course - Vital Signs Last Recorded V/S: Last Vital Signs Temp 36.6 C 12/28/19 12:33 Pulse 87 12/28/19 12:33 Resp 18 12/28/19 12:33 BP 122/82 12/28/19 12:33 Pulse Ox 99 12/28/19 12:33 - Orders/Labs/Meds Orders: Active Orders 24 hr Category Date Time Status EKG Documentation Completion [RC] STAT Care 12/28/19 13:26 Active CORONAVIRUS COVID-19 PCR PHL Stat Lab 12/28/19 13:32 Received CULTURE STREP A CONFIRMATION [RM] Stat Lab 12/28/19 13:10 Results STREP SCRN A RAPID W CULT CONF [RM] Stat Lab 12/28/19 13:10 Results Isolation [COMM] Routine Oth 12/28/19 13:22 Ordered Labs: Laboratory Tests 12/28/19 12/28/19 Range/Units 14:30 14:30 WBC 6.16 (3.98-10.04) K/mm3 RBC 4.35 (3.98-5.22) M/mm3 Hgb 13.9 (11.2-15.7) gm/dl Hct 41.2 (34.1-44.9) % MCV 94.7 (79.4-94.8) fl MCH 32.0 (25.6-32.2) pg MCHC 33.7 (32.2-35.5) g/dl RDW Std Deviation 40.6 (36.4-46.3) fL Plt Count 145 L D (182-369) K/mm3 MPV 9.6 (9.4-12.3) fl Neut % (Auto) 74.4 H (34.0-71.1) % Lymph % (Auto) 17.0 L (19.3-51.7) % [place] % (Auto) 5.5 (4.7-12.5) % Eos % (Auto) 2.6 (0.7-5.8) Baso % (Auto) 0.3 (0.1-1.2) % Neut # (Auto) 4.58 (1.56-6.13) K/mm3 Lymph # (Auto) 1.05 L (1.18-3.74) K/mm3 [place] # (Auto) 0.34 (0.24-0.36) K/mm3 Eos # (Auto) 0.16 (0.04-0.36) K/mm3 Baso # (Auto) 0.02 (0.01-0.08) K/mm3 Manual Slide Review Abnormal smear Sodium 140 (136-145) mEq/L Potassium 3.6 (3.5-5.1) mEq/L Chloride 105 (98-107) mEq/L Carbon Dioxide 20 L (21-32) mEq/L Anion Gap 18.6 H (5-15) BUN 16 (7-18) mg/dL Creatinine 0.6 (0.55-1.02) mg/dL Est Cr Clr Drug Dosing 89.70 mL/min Estimated GFR (MDRD) > 60 (>60) mL/min BUN/Creatinine Ratio 26.7 H (14-18) Glucose 89 (74-106) mg/dL Calcium 8.7 (8.5-10.1) mg/dL Total Bilirubin Cancelled AST Cancelled ALT Cancelled Alkaline Phosphatase Cancelled Troponin I < 0.017 (0.00-0.056) ng/mL Total Protein Cancelled Albumin Cancelled Globulin Cancelled Albumin/Globulin Ratio Cancelled - Re-Assessments/Exams Free Text/Narrative Re-Assessment/Exam: 12/28/19 15:33 Troponin is negative EKG looks normal rapid strep is negative, influenza screen is negative. Have advised the patient that her rapid strep is negative confirmatory culture is pending and her COVID testing is pending. She is advised to practice good isolation stay home. And we will notify her if her strep comes back positive. Early on we did discuss getting a chest x-ray, however this would require the patient going to x-ray as her portable unit is down the patient does not think her cough is any worse than normal. Departure - Departure Time of Disposition: 15:35 Disposition: Home, Self-Care 01 Clinical Impression: Pharyngitis with viral syndrome, Chest pain - Discharge Information Instructions: Viral Respiratory Infection, [id number], Nonspecific Chest Pain , Adult, [id number], Pharyngitis, [id number] Referrals: Shannon Gutierrez PA-C [Primary Care Provider] - Forms: ED Department Discharge, ED Return to Work/School Form Additional Instructions: Return to the emergency room with any questions problems or worsening symptoms. Follow-up in the clinic in 1 week. Social isolation as long as you are ill and give yourself a few extra days afterwards. You will be notified of the results of your COVID test and you will be notified if your strep comes back positive. Sepsis Event Note (ED) - Evaluation Sepsis Screening Result: No Definite Risk - Focused Exam Vital Signs: Vital Signs Temp Pulse Resp BP Pulse Ox 12/28/19 12:33 36.6 C 87 18 122/82 99 - My Orders Last 24 Hours: My Active Orders 12/28/19 13:10 CULTURE STREP A CONFIRMATION [RM] Stat STREP SCRN A RAPID W CULT CONF [RM] Stat 12/28/19 13:22 Isolation [COMM] Routine 12/28/19 13:26 EKG Documentation Completion [RC] STAT 12/28/19 13:32 CORONAVIRUS COVID-19 PCR PHL Stat - Assessment/Plan Last 24 Hours: My Active Orders 12/28/19 13:10 CULTURE STREP A CONFIRMATION [RM] Stat STREP SCRN A RAPID W CULT CONF [RM] Stat 12/28/19 13:22 Isolation [COMM] Routine 12/28/19 13:26 EKG Documentation Completion [RC] STAT 12/28/19 13:32 CORONAVIRUS COVID-19 PCR PHL Stat
== END 2019-12-28 16:05 | disposition home or self-care (01) ==
LOC: JD.ED 12:07
DX: B34.9 Viral infection, unspecified (principal); J02.9 Acute pharyngitis, unspecified; I25.2 Old myocardial infarction; I25.10 Atherosclerotic heart disease of native coronary artery without angina pectoris; F17.210 Nicotine dependence, cigarettes, uncomplicated; E66.9 Obesity, unspecified; Z68.31 Body mass index [BMI] 31.0-31.9, adult
CPT/HCPCS: 36415; 80048; 84484; 85025; 87081; 87430; 87804; 93005; 93010; 99283; 99285-25; U0002

== ENCOUNTER 2022-12-25 17:35 | Emergency (ER) | payer MEDICAID, OTHER ==
[2022-12-25] MEDS ORDERED: HYDROmorphone 0.5 MG/0.5 ML Syringe IM ONE (18:14)
[2022-12-25] MEDS ORDERED: Ketorolac 60 MG/2 ML SDV IM ONE (18:14)
[2022-12-25 18:21] LABS: APPEARANCE,URINE SLT CLOUDY (Clear); BILIRUBIN,URINE NEGATIVE (Negative); COLOR,URINE YELLOW (Yellow); GLUCOSE,URINE NEGATIVE (Negative); KETONES,URINE NEGATIVE (Negative); LEUKOCYTE ESTERASE,URINE TRACE (Negative); NITRITE,URINE POSITIVE (Negative); OCCULT BLOOD,URINE NEGATIVE (Negative); PH,URINE 5.5 (5.0-8.0); PROTEIN,URINE TRACE (Negative); UROBILINOGEN,URINE 0.2 (0.2-1.0)
[2022-12-25 18:48] LABS: RBC,URINE 0-5 /hpf (0-5); WBC,URINE 20-30 /hpf (0-5)
[2022-12-25 18:49] LABS: BACTERIA,URINE MANY /hpf (FEW); MUCUS,URINE MANY /hpf (FEW)
== END 2022-12-25 19:41 | disposition home or self-care (01) ==
LOC: JD.ED 17:35
DX: N30.00 Acute cystitis without hematuria (principal); I25.10 Atherosclerotic heart disease of native coronary artery without angina pectoris; I25.2 Old myocardial infarction; E66.9 Obesity, unspecified; Z68.37 Body mass index [BMI] 37.0-37.9, adult; Z79.899 Other long term (current) drug therapy
CPT/HCPCS: 81001; 87086; 87088; 87186; 96372; 99283; J1170; J1885